=== PATIENT | male | born 1965 | race African-American/Black ===

== ENCOUNTER 2022-08-27 16:42 | Emergency (ER) | payer SELFPAY ==
[~2022-08-27] VITALS: Ht 177.8 cm; Wt 77.0 kg
[2022-08-27] MEDS ORDERED: ONDANSETRON HCL 4MG/2ML INJ IV ONE (17:00)
[2022-08-27] MEDS ORDERED: FOLIC ACID 1 MG, THIAMINE HCL 100 MG, MVI, ADULT NO.1 10 ML in DEXTROSE 5% WATER 1,000 ML IV ONE ×4 (17:00)
[2022-08-27 17:36] LABS: HEMATOCRIT. 36.6 % (42.0-52.0); HEMOGLOBIN. 11.8 g/dL (14.0-18.0); MEAN CORPUSCULAR HEMOGLOBIN 28.7 pg (28.0-32.0); MEAN CORPUSCULAR VOLUME 88.8 fL (80.0-94.0); MEAN PLATELET VOLUME 7.2 fl (7.4-10.4); PLATELET 170 x1000/uL (130-400); RED BLOOD CELL COUNT 4.12 mill/uL (4.7-6.1); RED CELL DISTRIBUTION WIDTH 16.6 % (11.6-14.6)
[2022-08-27 18:26] LABS: PLATELET ESTIMATE NORMAL
[2022-08-27 18:29] LABS: CHLORIDE 96 mEq/L (98-107)
[2022-08-27 18:56] LABS: ETHANOL BLOOD 504 mg/dL
[2022-08-27 19:50] LABS: *AMPHETAMINES SCREEN URINE NEGATIVE (NEGATIVE); *BARBITURATES SCREEN URINE NEGATIVE (NEGATIVE); *BENZODIAZEPINES SCREEN URINE NEGATIVE (NEGATIVE); *COCAINE SCREEN URINE NEGATIVE (NEGATIVE); CANNABINOID URINE SCREEN NEGATIVE (NEGATIVE); METHADONE URINE SCREEN NEGATIVE (NEGATIVE); OPIATES URINE SCREEN NEGATIVE (NEGATIVE); PHENCYCLIDINE URINE SCREEN NEGATIVE (NEGATIVE)
[2022-08-28 01:45] VITALS: BP 127/65
== END 2022-08-28 02:08 | disposition home or self-care (01) ==
LOC: ER 16:42
DX: T51.91XA Toxic effect of unspecified alcohol, accidental (unintentional), initial encounter (principal); Y92.9 Unspecified place or not applicable; G92.9 Unspecified toxic encephalopathy; F10.10 Alcohol abuse, uncomplicated; Y90.8 Blood alcohol level of 240 mg/100 ml or more; R56.9 Unspecified convulsions
CPT/HCPCS: 36415; 70450; 80048; 80305; 80307; 80320; 80329; 85025; 96365; 96366; 96375; 99284; J3411; J3490; J7070; G0480